=== PATIENT | male | born 1985 | race Caucasian/White ===

== ENCOUNTER 2018-10-17 10:21 | Emergency (ER) | payer OTHER ==
[~2018-10-17] VITALS: Ht 180.3 cm; Wt 86.2 kg
[2018-10-17] MEDS ORDERED: NORCO 5-325 TA1 EACH PO (12:16)
[2018-10-17] MEDS ORDERED: KEFLEX500 M1 PO (12:16)
[2018-10-17] MEDS ORDERED: ULTRAM 50MG TAB50 MG PO (12:46)
[2018-10-17 12:54] VITALS: BP 123/77
== END 2018-10-17 12:55 | disposition home or self-care (01) ==
LOC: ER 10:21
DX: S61.213A Laceration without foreign body of left middle finger without damage to nail, initial encounter (principal); F17.200 Nicotine dependence, unspecified, uncomplicated; Z88.0 Allergy status to penicillin; W23.0XXA Caught, crushed, jammed, or pinched between moving objects, initial encounter; Y93.89 Activity, other specified; Y92.89 Other specified places as the place of occurrence of the external cause; Y99.8 Other external cause status